=== PATIENT | female | born 1995 | race Caucasian/White ===

== ENCOUNTER → 2016-11-29 | Outpatient (CLI) | payer BC ==
[2016-11-29 18:04] LABS: HEMATOCRIT 42.5 % (37.0-47.0); HEMOGLOBIN 14.4 g/dL (12.0-16.0); MEAN CORPUSCULAR HEMOGLOBIN 31.6 PG (27-31); MEAN CORPUSCULAR HGB CONC 33.9 g/dL (33-37); MEAN PLATELET VOLUME 10.1 FL (7.4-12.2); RDW COEFFICIENT OF VARIATION 12.4 % (11.5-14.5); RED BLOOD COUNT 4.56 10^6/uL (4.20-5.40); WHITE BLOOD COUNT 7.68 10^3/uL (4.8-10.8)
[2016-11-29 18:30] LABS: PROTHROMBIN TIME 11.4 secs (9.7-11.4)
== END ==
LOC: LAB 17:37
PROVIDERS: ATTEND Physician Assistant
DX: H47.10 Unspecified papilledema (principal); R51 Headache
CPT/HCPCS: 36415; 85027; 85610; 85730

== ENCOUNTER → 2017-05-30 | Outpatient (CLI) | payer BC ==
--- NOTE | 2017-05-30 11:39 | DI ---
LEFT KNEE, 05/30/2017 10:52 AM: Clinical History: Left knee pain. Previous Exam: 11/18/2010. 4 views are submitted. The AP and tunnel projections are weight bearing views. Since the prior exam, the patient has lost substantial weight. There is a transverse drill hole through the upper half of t he patella. A metallic anchor is present over the lateral femoral condyle. No joint effusion is prese nt. There is mild narrowing of the medial compartment similar to the previous exam. The lateral and t he patellofemoral compartments are intact. Reading: Mild narrowing of the medial compartment. Postsurgical changes of the patella and the lateral femoral condyle.
--- NOTE | 2017-05-30 11:43 | DI ---
RIGHT KNEE, 05/30/2017 10:52 AM: Clinical History: Right knee pain. Previous Exam: 10/11/2015. 4 views are submitted. The AP and tunnel projections are weight bearing views. Since the previous exa m, the patient has lost substantial weight. The patient is status post ACL repair. There is an anchor along the superior aspect of the ACL graft site and there is a threaded screw in the proximal tibia. Mild narrowing is present in the medial compartment. The patellofemoral and lateral compartments are normal. Reading: Mild narrowing of the medial compartment. Status post ACL repair.
== END ==
LOC: ORTHO 11:00
PROVIDERS: ATTEND Orthopaedic Surgery
DX: M25.561 Pain in right knee (principal); M25.562 Pain in left knee; Z98.890 Other specified postprocedural states
CPT/HCPCS: 73564

== ENCOUNTER → 2017-06-06 | Outpatient (CLI) | payer BC ==
--- NOTE | 2017-06-06 11:42 | DI ---
MRI LOW EXTREMITY JNT W/O CN,06/06/2017 8:12 AM: Clinical History: Left knee pain Previous Exam: None available. Findings: Multiplanar MR images are obtained through the left knee without contrast. Alignment is anatomic. No fractures are seen. Marrow signal is unremarkable except for some metallic blooming artifact. There i s also some blooming metallic artifact within the patella. The anterior and posterior cruciate ligaments are intact. The medial and lateral collateral ligaments are also intact. The quadriceps and patellar tendons are intact. The articular cartilage demonstrates some thinning. The lateral meniscus is intact. The medial meniscus is also intact. The major vascular flow voids are unremarkable. Signal within the musculature is unremarkable. Impression: 1. Postsurgical changes with blooming metallic artifact and mild low-grade chondromalacia otherwise u nremarkable.
== END ==
LOC: MRI 08:09
PROVIDERS: ATTEND Orthopaedic Surgery
DX: M25.562 Pain in left knee (principal); M94.262 Chondromalacia, left knee
CPT/HCPCS: 73721